=== PATIENT | male | born 1995 | race Two or more races ===

== ENCOUNTER 2016-10-13 22:50 | Emergency (ER) | payer MEDICAID ==
[~2016-10-13] VITALS: Ht 177.8 cm; Wt 81.6 kg
[2016-10-13] MEDS ORDERED: NKM (23:02)
--- NOTE | 2016-10-13 23:40 | Emergency Room Report ---
History of Present Illness General Chief Complaint: Chest Pain Source: Patient Present Illness HPI 21 YOM walk-in with chest pain, right sided, radiating to back "for a few hours. " Worse with deep breath. No good position. Sometimes better laying down, sometimes better standing. When he changes position, pain is better. Denies assoc fever/chills. 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 No known family history of sudden , PE. Denies smoking , drug use. Has had this pain intermittently for 3 years. Always occurs in "the Summer." Last for a while then goes away. Only had check "at small clinic" before where "they just gave me a pain shot." Allergies: Coded Allergies: No Known Allergies (Unverified , 10/13/16) Patient History Past Medical History: none Past Surgical History: none Pertinent Family History: [place] Social History: Denies: alcohol use, drug use, smoking Immunizations: UTD Reviewed Nursing Documentation: PMH: Agreed, PSxH: Agreed Nursing Documentation-PMH Past Medical History: No Stated History Review of Systems All Other Systems: negative except mentioned in HPI Physical Exam Vital Signs Date Time Temp Pulse Resp B/P Pulse Ox O2 Delivery O2 Flow Rate FiO2 10/13/16 22:59 98.2 99 18 121/65 98 Room Air Sp02 EP Interpretation: reviewed, normal General Appearance: normal inspection, well appearing, no apparent distress, alert, GCS 15, non-toxic, other - Sitting upright in stretcher, holding chest Head: normocephalic, atraumatic Eyes: bilateral eye EOMI, bilateral eye PERRL ENT: normal ENT inspection, hearing grossly normal, normal voice Neck: normal inspection, full range of motion, supple, no bony tend Respiratory: normal inspection, lungs clear, normal breath sounds, no rhonchi, no respiratory distress, no retraction, no accessory muscle use, no wheezing, other, chest symmetrical, palpation of chest normal Cardiovascular #1: regular rate, rhythm, no edema Gastrointestinal: normal inspection, normal bowel sounds, non tender, soft, no guarding, no hernia Genitourinary: no CVA tenderness Musculoskeletal: normal inspection, back normal, normal range of motion, Sukhdeep' s Sign negative Neurologic: normal inspection, alert, oriented x3, responsive, 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 Afebrile. - CXR negative for PTX - D-dimer WNL - ECG is NSR, troponin 0. - No recent URI symptoms to support costochondritis - NO ECG changes or elevated trop to suggest pericarditis/myocardiits - Atraumatic - Lungs CTAB. No asthma or smoking history - Unknown etiology - Patient pain-free after analgesia in ED - Advised PMD followup DC home with Labs, ECG copy EKG Diagnostic Results Rate: normal Rhythm: NSR ST Segments: no acute changes ASA given to the pt in ED: No Rhythm Strip Diag. Results EP Interpretation: yes Rhythm: NSR, no PVC's, no ectopy Chest X-Ray Diagnostic Results Chest X-Ray Ordered: Yes # of Views/Limited/Complete: 1 View Interpretation: no consolidation, no effusion, no pneumothorax, no acute cardiopulmonary disease Indication: Chest Pain Impression: No acute disease Date Electronically Signed: Oct 13, 2016 Time Electronically Signed: 23:40 Interpreting ER Physician: Chelsea Last Vital Signs Date Time Temp Pulse Resp B/P Pulse Ox O2 Delivery O2 Flow Rate FiO2 10/13/16 22:59 98.2 99 18 121/65 98 Room Air Status: improved Disposition: HOME, SELF-CARE ISMAEL GREWAL M.D. Oct 13, 2016 23:40
[2016-10-13] MEDS ORDERED: Oxycodone/Acetaminophen 5-325 ORAL ONE (23:45)
[2016-10-14 00:06] LABS: BASOPHILS % (AUTO) 1.2 % (0.0-2.0); EOSINOPHILS % (AUTO) 2.1 % (0.0-3.0); LYMPHOCYTES % (AUTO) 33.4 % (20.0-45.0); MEAN CORPUSCULAR HEMOGLOBIN 33.1 PG (27.0-31.0); MEAN CORPUSCULAR HGB CONC 35.8 G/DL (32.0-36.0); MEAN CORPUSCULAR VOLUME 92 FL (80-99); MEAN PLATELET VOLUME 7.4 FL (6.5-10.1); MONOCYTES % (AUTO) 5.7 % (1.0-10.0); NEUTROPHILS % (AUTO) 57.7 % (45.0-75.0); PLATELET COUNT 207 K/UL (150-450); RED BLOOD COUNT 4.63 M/UL (4.70-6.10); RED CELL DISTRIBUTION WIDTH 10.5 % (11.6-14.8)
[2016-10-14 00:19] LABS: TROPONIN I < 0.30 ng/mL (<=0.30)
[2016-10-14 00:21] LABS: ALANINE AMINOTRANSFERASE 53 U/L (3-41); ALBUMIN/GLOBULIN RATIO 1.6 (1.0-2.7); ANION GAP 13 (5-15); ASPARTATE AMINO TRANSFERASE 30 U/L (5-40); CALCIUM 10.4 mg/dL (8.6-10.2); CARBON DIOXIDE 29 mEQ/L (20-30); CHLORIDE 99 mEQ/L (98-107); GLOMERULAR FILTRATION RATE > 60 mL/min (>60); HEMOLYSIS 6; SODIUM 141 mEQ/L (135-145); TOTAL PROTEIN 8.6 g/dL (6.6-8.7)
[2016-10-14 00:31] LABS: CKMB 1.9 ng/mL (< 6.7)
[2016-10-14] MEDS ORDERED: IBUPROFEN600 MG ORAL (02:11)
[2016-10-14 02:15] VITALS: BP 121/65
--- NOTE | 2016-10-14 08:57 | Diagnostic Imaging Report ---
Indication: Chest pain Technique: Single portable AP view of the chest. Findings: Comparison: None. Mild dextroscoliosis lower thoracic spine. Remaining bones and extra pulmonary soft tissues, cardiomediastinal silhouette, pulmonary vasculature and parenchyma, and pleural surfaces are unremarkable. IMPRESSION: Mild scoliosis Otherwise negative mobile AP chest This correlates with [facility] preliminary report..
--- NOTE | 2016-10-15 20:05 | Cardiology Report ---
APPROVED REPORT EKG Measurement Heart [id number] Normal sinus rhythm Normal ECG
== END 2016-10-14 02:17 | disposition home or self-care (01) ==
LOC: EMR 23:57
DX: R07.9 Chest pain, unspecified (principal); I25.2 Old myocardial infarction; M41.84 Other forms of scoliosis, thoracic region
CPT/HCPCS: 36415; 71010; 80053; 82550; 82553; 84484; 85025; 85379; 93005; 99283